=== PATIENT | female | born 1945 | race Caucasian/White ===

== ENCOUNTER → 2016-06-20 | Outpatient (CLI) | payer OTHER ==
[~2016-06-20] MED LIST: ACETAMINOPHEN; ACETAMINOPHEN PO; AMLODIPINE BESY10 MG PO; APRESOLINE; ASPIRIN; COMBIVENT INH14.7 GM; COUMADIN; COUMADIN PO; COUMADIN5 MG PO; COUMADIN7.5 MG PO; CRESTOR10 MG PO; CRESTOR5 MG PO; CYMBALTA PO; DARVOCET-N 1001 TAB PO; DESYREL50 MG PO; DIAZEPAM PO; FLOVENT HFA12 GM; HCTZ; HCTZ PO; LISINOPRIL; LISINOPRIL PO; LISINOPRIL10 MG PO; LISINOPRIL20 MG PO; LOPRESSOR PO; LORTAB 5/500 TA1 TA1 PO; LOTREL; METOPROLOL SUCC25 MG PO; METOPROLOL SUCC50 MG PO; NORVASC; NORVASC PO; NORVASC10 MG PO; PRINIVIL20 M1 PO; SIMVASTATIN10 MG PO; TOPROL XL 50 MG50 MG PO; TOPROL XL PO; TRICOR PO; VICODIN 5/500 T1 TAB PO; VITAMIN D50000 UNIT PO; WARFARIN SODIU7.5 M1 PO; WARFARIN SODIUM5 GM PO; ZANAFLEX PO; ZOFRAN ODT4 MG PO
--- NOTE | ~2016-06-20 | MY11 ---
[facility] A Service [facility] RADIOLOGY TEXT RESULTS PATIENT: LUPIS HENNING LOCATION: [facility] : 49 UNIT #: [id number] AGE: [address]: Robyn Diego MD SEX: F ORDER DR: [id number] [facility]. [place], [place] [address] [id number] O MR#: [id number] Acc #: [id number] NAME: LUPIS HENNING : 1945 SEX: F STUDY DATE/TIME: 06/20/2016 12:05 UNIT: [facility] ROOM: STUDY DESCRIPTION: MY Mammogram Screening Dig [facility]ubba Attending Physician: Robyn Diego M.D. Ordering Physician: Robyn Diego M.D. Primary Care Physician: Robyn Diego M.D. MEDICAL IMAGING REPORT This report is preliminary unless electronic signature is present EXAM Bilateral Digital Screening Mammogram with CAD INDICATION Breast cancer screening. 71-year-old asymptomatic female. No personal or family history of breast cancer. COMPARISON March 16, 2015; April 15, 2013; and March 11, 2013. FINDINGS There are scattered fibroglandular tissues. No suspicious findings are present. IMPRESSION No mammographic evidence of malignancy. Annual screening mammography and clinical breast exam are recommended. A result letter will be sent to the patient. Patients over the age of 40 are entered into a reminder system with target due date for the next mammogram. BIRADS: 1 Negative Dictated by... Benedict Harris M.D. THIS IS AN ELECTRONICALLY VERIFIED REPORT Benedict Harris M.D. at 06/22/2016 7:06 PM BLM/pc [facility] A Service [facility] RADIOLOGY TEXT RESULTS PATIENT: LUPIS HENNING LOCATION: [facility] : 49 UNIT #: [id number] AGE: [address]: Robyn Diego MD SEX: F ORDER DR: TD: 06/21/2016 06:58 JOB #: [id number] MEDICAL IMAGING REPORT COPY
== END | disposition home or self-care (01) ==
LOC: CWCC 11:15
DX: Z12.31 Encounter for screening mammogram for malignant neoplasm of breast (principal); Z88.0 Allergy status to penicillin; Z88.5 Allergy status to narcotic agent
CPT/HCPCS: G0202